=== PATIENT | male | born 1940 | race Caucasian/White ===

== ENCOUNTER → 2021-12-07 | Outpatient (CLI) | payer MEDICARE, OTHER ==
[~2021-12-07] MED LIST: ASP81TEC PO; ASPIRIN 81 MG PO; ATEN25TA PO; CPR500T PO; FISH OIL 1,2001 EAC1 PO; HYDR-3583 PO; HYDR1CAP2 PO; HYDR50TA3 PO; HYOS0.1216 PO; HYOS0.1217 PO; KCL10CCR PO; MTF500T PO; NITR-33 PO; OXYC1CAP3 PO; PHEN200T27 PO; PROP1TAB77 PO; SIMV40TA4 PO
== END ==
LOC: CARD 10:00
PROVIDERS: ATTEND Internal Medicine Cardiovascular Disease
DX: I35.0 Nonrheumatic aortic (valve) stenosis (principal); I10 Essential (primary) hypertension
CPT/HCPCS: 93306

== ENCOUNTER → 2021-12-09 | Outpatient (CLI) | payer MEDICARE, OTHER ==
[~2021-12-09] MED LIST changes: +CATHETER FLUSH 10 ML SYR IV PRN; +HOLD METFORMIN - RECEIVED CONTRAST 20 ML VIAL IV SCH; +IOHEXOL 350 MG/ML 100 ML (OMNIPAQUE 350) VIAL IV ONE; +NS 100 ML (IVPB) BAG IV ONE
[2021-12-09 09:17] LABS: CALCIUM 9.3 MG/DL (8.5-10.1); CREATININE SERUM 0.84 MG/DL (0.60-1.30); POTASSIUM 4.4 MMOL/L (3.6-5.0)
--- NOTE | 2021-12-09 11:21 | Diagnostic Imaging Report ---
PROCEDURE: CT angiography of the abdomen with and without contrast. TECHNIQUE: Multiple contiguous axial images were obtained through the abdomen and pelvis after administration of intravenous contrast. 3D MIP reconstructions were made. Auto Exposure Controls were utilized during the CT exam to meet ALARA standards for radiation dose reduction. INDICATION: Aneurysm COMPARISON with exam 04/27/2013, that exam a noncontrast abdominal pelvic CT. There is marked progression of severely aneurysmal partially visualized tortuous descending thoracic aorta measuring 6.7 cm. The root is ascending and the remaining descending aorta are all above the field of view. Owing to its marked progression and severe dilatation, a formal CT angiographic study of the thoracic aorta needed. Abdominal aorta just above the celiac takeoff is aneurysmally dilated at 3.6 cm today previously 3.2 cm. There is an accessory right upper pole renal artery. A tortuous abdominal aorta at its proximal infrarenal segment is 2.8 cm today, previously 2.5 cm. Unruptured ectasia of the bilateral proximal common iliacs measured 1.5 cm left and 1.4 cm right, unchanged. There is no abdominal intra or retroperitoneal hemorrhage. The celiac, the superior mesenteric and inferior mesenteric arteries as well as their visualized primary branches were all widely patent. A few renal cysts without hydronephrosis. The liver, spleen, adrenals, pancreas all unremarkable. No bowel obstruction. IMPRESSION: Progressive and severe aneurysmal dilatation of the partially visualized lower thoracic aorta. No visualized lower chest hemorrhage. Mild progressive ectasia of the atherosclerotic abdominal aorta without its rupture. Mild stable ectasia of the bilateral common iliacs. No findings of acute end organ ischemia. Formal CT angiographic study of the chest recommended to evaluate the aneurysmal thoracic aorta throughout its extent. Dictated by: Dictated on workstation # [id number]
== END ==
LOC: RAD 09:45
PROVIDERS: ATTEND Nurse Practitioner Family
DX: I71.4 Abdominal aortic aneurysm, without rupture (principal); I10 Essential (primary) hypertension
CPT/HCPCS: 36415; 74175; 80048

== ENCOUNTER → 2021-12-17 | Outpatient (CLI) | payer MEDICARE, OTHER ==
[~2021-12-17] MED LIST changes: -CATHETER FLUSH 10 ML SYR IV PRN; -HOLD METFORMIN - RECEIVED CONTRAST 20 ML VIAL IV SCH; -IOHEXOL 350 MG/ML 100 ML (OMNIPAQUE 350) VIAL IV ONE; -NS 100 ML (IVPB) BAG IV ONE
[2021-12-17 10:03] LABS: BASOPHILS % (AUTO) 0 % (0-10); EOSINOPHILS # (AUTO) 0.1 10^3/uL (0.0-0.3); EOSINOPHILS % (AUTO) 1 % (0-10); HEMATOCRIT 40 % (40-54); HEMOGLOBIN 13.2 g/dL (13.3-17.7); LYMPHOCYTES # (AUTO) 0.8 10^3/uL (1.0-4.0); LYMPHOCYTES % (AUTO) 13 % (12-44); MEAN CORPUSCULAR HEMOGLOBIN 31 pg (25-34); MEAN CORPUSCULAR HGB CONC 33 g/dL (32-36); MEAN CORPUSCULAR VOLUME 95 fL (80-99); MEAN PLATELET VOLUME 9.8 fL (9.0-12.2); MONOCYTES # (AUTO) 0.4 10^3/uL (0.0-1.0); MONOCYTES % (AUTO) 6 % (0-12); NEUTROPHILS # (AUTO) 5.3 10^3/uL (1.8-7.8); NEUTROPHILS % (AUTO) 80 % (42-75); PLATELET COUNT 175 10^3/uL (130-400); WHITE BLOOD COUNT 6.6 10^3/uL (4.3-11.0)
[2021-12-17 10:10] LABS: BILIRUBIN,URINE NEGATIVE (NEGATIVE); CLARITY,URINE CLEAR; COLOR,URINE YELLOW; GLUCOSE, URINE (UA) NEGATIVE (NEGATIVE); KETONES,URINE NEGATIVE (NEGATIVE); LEUKOCYTE ESTERASE ,URINE NEGATIVE (NEGATIVE); NITRITE,URINE NEGATIVE (NEGATIVE); PH,URINE 5.5 (5-9); PROTEIN,URINE NEGATIVE (NEGATIVE)
[2021-12-17 10:20] LABS: ALBUMIN 3.9 GM/DL (3.2-4.5); BACTERIA,URINE NEGATIVE /HPF; BILIRUBIN,TOTAL 1.1 MG/DL (0.1-1.0); CALCIUM 9.5 MG/DL (8.5-10.1); CREATININE SERUM 0.82 MG/DL (0.60-1.30); POTASSIUM 4.6 MMOL/L (3.6-5.0); SQUAMOUS EPITHELIAL CELL,UR RARE /HPF; TOTAL PROTEIN 6.4 GM/DL (6.4-8.2)
--- NOTE | 2021-12-17 11:03 | Diagnostic Imaging Report ---
Indication: Thoracic aortic aneurysm. Correlation is made with prior chest radiograph from 08/23/2010. There is marked ectasia and tortuosity of the descending thoracic aorta. Size of the aorta appears to be increased when compared with prior radiograph from 2011. This would be better characterized with CT chest if not already performed. Lungs are clear. There is no effusion or pneumothorax IMPRESSION: Thoracic aneurysmal dilatation and tortuosity, increased since exam from 2010. Better characterization with CT would be recommended if not already performed at another institution. Dictated by: Dictated on workstation # [id number]
== END ==
LOC: CARD 09:31
PROVIDERS: ATTEND Nurse Practitioner
DX: Z01.810 Encounter for preprocedural cardiovascular examination (principal); I71.2 Thoracic aortic aneurysm, without rupture
CPT/HCPCS: 36415; 71046; 80053; 81000; 85025; 93005

== ENCOUNTER → 2021-12-22 | Outpatient (CLI) | payer MEDICARE, OTHER | LOC: LABNPT 07:32 | PROVIDERS: ATTEND Thoracic Surgery (Cardiothoracic Vascular Surgery) | DX: Z01.812 Encounter for preprocedural laboratory examination (principal); I71.2 Thoracic aortic aneurysm, without rupture ==

== ENCOUNTER 2022-02-13 11:00 | Inpatient (IN) | payer MEDICARE, OTHER ==
[~2022-02-13] VITALS: Ht 172.7 cm; Wt 67.4 kg
[2022-02-13] VITALS (8 sets, daily range): BP systolic 21–122; BP diastolic 61–97
[2022-02-13] MEDS ORDERED: MELATONIN 3 MG TABLET PO PRN (12:30)
[2022-02-13] MEDS ORDERED: MILK OF MAGNESIA 400 MG/5 ML 30 ML UDC PO PRN (12:30)
[2022-02-13] MEDS ORDERED: ANTACID SUSP 30 ML UDC (MYLANTA) PO PRN (12:30)
[2022-02-13] MEDS ORDERED: ONDANSETRON 4 MG/2 ML (SDV) Z0FRAN IV PRN (12:30)
--- NOTE | 2022-02-13 12:59 | Tele-ICU Progress Note ---
Subjective Date Seen by a Provider: Feb 13, 2022 Time Seen by a Provider: 12:30 Subjective/Events-last exam This virtual visit was conducted using real time audio/video. Thank you for asking us to see this patient for respiratory insufficiency due to CHF. Transferred from OSH so no data available. PMH: TAA repair and lumbar laminectomy for blood clot January 2022. HTN. PE: VSS. O2 sat 95% on Bipap 15/5 30% HEENT: No obvious masses, adenopathy or JVD. Chest: clear to auscultation. CV: RRR S1 S2 No murmur or added sounds. Abd: Non-tender. Bowel sounds Y. : Unremarkable. Bonilla Y. MITER SAWYER/psychiatric: Grossly intact. No obvious focal findings. Extremities: trace edema. Capillary refill < 3 seconds. Skin: unremarkable. Results: all pending Available chart/vitals reviewed. Video assessment done using teleICU camera, rest of exam as per RN. A/P: Respiratory insufficiency: Continue present management with BIPAP Monitor for increasing oxygenation needs and/or need for intubation. Critical Care: critically ill patient. Cont. Lasix, SSI. Discussed with RN AMBIKA. Asked RN to reach out to eICU if any questions or concerns later. Time spent with patient/coordination of care with other health professionals (m ins): 30 Sepsis Event Evaluation Height, Weight, BMI Height: '" Weight: 176lbs. oz. 79.980533ya; BMI Method: Exam Exam Patient acknowledged, consented, and participated in this virtual visit which was conducted using real time audio/video Height & Weight Height: '" Weight: 176lbs. oz. 79.261737ta; BMI Method: General Appearance: Mild Distress Peripheral Pulses: 1+ Dorsalis Pedis (R), 1+ Left Dors-Pedis (L) Assessment/Plan Assessment/Plan see free text Critical Care: Critically Ill Patient JOHANNA GIANG MD Feb 13, 2022 12:59
[2022-02-13] MEDS: inSUlin ASPART (NovoLOG) 1 UNIT/0.01 ML (CHARGE PER UNIT) SC SCH ×2 (16:28→21:33)
[2022-02-13] MEDS: FUROSEMIDE 40 MG/4 ML INJ (LASIX) IVP SCH (16:29)
[2022-02-13] MEDS ORDERED: HEParin DRIP 25000 UNIT/500ML 500 ML IV ONE (19:41)
[2022-02-13] MEDS ORDERED: HEParin DRIP 25000 UNIT/500ML 500 ML IV SCH (19:45)
[2022-02-13] MEDS ORDERED: HEParin 1000 UNIT/ML (10ML VIAL) FOR BOLUS IV PRN (19:45)
[2022-02-13] MEDS ORDERED: ASPIRIN E.C. 81 MG (ECOTRIN) TAB PO ONE (20:45)
[2022-02-13] MEDS ORDERED: NON-FORMULARY MEDICATION 1 EA EA (Simvastatin 40 MG) PO SCH (21:00)
[2022-02-13 21:19] LABS: HEMATOCRIT 33 % (40-54); HEMOGLOBIN 10.5 g/dL (13.3-17.7); MEAN CORPUSCULAR HEMOGLOBIN 30 pg (25-34); MEAN CORPUSCULAR HGB CONC 32 g/dL (32-36); MEAN CORPUSCULAR VOLUME 97 fL (80-99); MEAN PLATELET VOLUME 10.4 fL (9.0-12.2); PLATELET COUNT 256 10^3/uL (130-400); WHITE BLOOD COUNT 11.4 10^3/uL (4.3-11.0)
[2022-02-13 21:33] LABS: INR 1.1 (0.8-1.4); PROTHROMBIN TIME PATIENT 14.1 SEC (12.2-14.7)
[2022-02-14] VITALS (17 sets, daily range): BP systolic 109–135; BP diastolic 67–91
[2022-02-14 04:33] LABS: BASOPHILS % (AUTO) 0 % (0-10); EOSINOPHILS % (AUTO) 0 % (0-10); HEMATOCRIT 32 % (40-54); HEMOGLOBIN 10.4 g/dL (13.3-17.7); LYMPHOCYTES % (AUTO) 9 % (12-44); MEAN CORPUSCULAR HEMOGLOBIN 31 pg (25-34); MEAN CORPUSCULAR HGB CONC 32 g/dL (32-36); MEAN CORPUSCULAR VOLUME 95 fL (80-99); MEAN PLATELET VOLUME 10.1 fL (9.0-12.2); MONOCYTES # (AUTO) 0.9 10^3/uL (0.0-1.0); MONOCYTES % (AUTO) 8 % (0-12); NEUTROPHILS # (AUTO) 9.2 10^3/uL (1.8-7.8); NEUTROPHILS % (AUTO) 82 % (42-75); PLATELET COUNT 251 10^3/uL (130-400); WHITE BLOOD COUNT 11.2 10^3/uL (4.3-11.0)
[2022-02-14 04:51] LABS: POTASSIUM 3.5 MMOL/L (3.6-5.0)
[2022-02-14 04:57] LABS: CREATININE SERUM 0.82 MG/DL (0.60-1.30)
[2022-02-14] MEDS: inSUlin ASPART (NovoLOG) 1 UNIT/0.01 ML (CHARGE PER UNIT) SC SCH ×2 (05:06→11:53)
[2022-02-14] MEDS: FUROSEMIDE 40 MG/4 ML INJ (LASIX) IVP SCH (06:32)
--- NOTE | 2022-02-14 07:24 | Diagnostic Imaging Report ---
EXAM: CHEST 1 VIEW, AP/PA ONLY. INDICATION: Congestive heart failure. COMPARISON: 12/17/2021. FINDINGS: Borderline heart size. Tortuous aorta with interval placement of a descending aortic stent graft. This obscures the central pulmonary vascularity. No significant interstitial prominence. No pleural effusion or pneumothorax. No acute osseous findings. IMPRESSION: 1. Interval placement of a thoracic aortic stent graft. 2. Chest is otherwise stable without significant interstitial or airspace edema. Dictated by: Dictated on workstation # [id number]
[2022-02-14] MEDS ORDERED: CATHETER FLUSH 10 ML SYR IV PRN (08:45)
[2022-02-14] MEDS ORDERED: NS IV 1000 ML 1,000 ML IV ONE (08:45)
--- NOTE | 2022-02-14 08:58 | Consultation-Cardiology ---
HPI-Cardiology Cardiology Consultation: Date of Consultation 02/14/22 Date of Admission 02/13/22 Attending Physician Daniela Peterson MD Admitting Physician Admitting Physician: Neyda Summers MD Attending Physician: Neyda Summers MD Consulting Physician JUDE COE JR, MD HPI: Time Seen by a Provider: 08:52 Chief Complaint: REASON FOR CONSULTATION: Heart failure and possible NSTEMI. I had the pleasure of seeing Ray in the intensive care unit at [facility] in [place], [place] today. In November he saw one of my partners in the office for a murmur. He subsequently underwent an echocardiogram that showed mild to moderate aortic regurgitation but also questionable aortic aneurysm. He subsequently underwent an abdominal CT scan that showed a small abdominal aortic aneurysm but a larger thoracic aortic aneurysm that was only partially imaged since the CT scan was abdominal. He was then referred to Dr. Wesley at [facility] and around January 31 he underwent TEVAR (thoracic endovascular aortic repair). On the second postoperative day the spinal drain was removed and then he developed severe back pain and was found to have spinal hematoma and had to undergo laminectomy. He spent approximately 9 days in the hospital and was just discharged home last week. He was doing well until early yesterday morning when he woke up from sleep feeling short of breath. He sat up in bed and still felt short of breath. His [id number]-mh-bmt checked his oxygen saturation and found this to be low so he went to [facility] for evaluation. He was found to be in heart failure and transferred to our hospital for further evaluation. He has received intravenous furosemide and his shortness of breath has already improved. During his evaluation, he had troponin levels drawn which were elevated and a cardiology consultation was re quested. He denies any chest discomfort. He denies any known history of coronary artery disease. 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 He denies palpitations, lightheadedness, syncope, or ankle edema. Since his surgery, he has had some intermittent problems swallowing liquids. He will get a lump in his throat. He has not had any trouble swallowing solid food. Certain portions of this document may have been dictated utilizing voice recognition technology. Inherent to this technology, typographical and gr ammatical errors may exist. As much as I am diligent to identify and correct these mistakes, some errors may remain in the document. Review of Systems-Cardiology Review of Systems Other comments Review of 10 organ systems is as per the history of present illness, otherwise negative. [id number] Hx Patient Social History Marrital Status: Smoking Status: Never a Smoker Have you traveled recently?: No Alcohol Use?: No Pt feels they are or have been: No Past Medical History PMH As described under Assessment. Family Medical History Family Medical History: He did not report a family history of premature coronary artery disease. Allergies and Home Medications Allergies Coded Allergies: Penicillins (Verified Allergy, Unknown, 05/11/10) Patient Home Medication List Home Medication List Reviewed: Yes Aspirin (Aspirin Ec 81 Mg) 81 Mg Tabec, 81 MG PO DAILY, (Reported) Entered as Reported by: MELISSA HUBER on 05/31/10 08 Last Action: Continued Atenolol (Tenormin 25 Mg) 25 Mg Tablet, 1 EACH PO DAILY, (Reported) Entered as Reported by: RENÉE PEDROZA on 05/11/1018 Last Action: Continued Hydrochlorothiazide (Hydrochlorothiazide) 50 Mg Tablet, 1 EACH PO DAILY, (Reported) Entered as Reported by: RENÉE PEDROZA on 05/11/10 0815 Hyoscyamine Sulfate (Levsin 0.125 Mg Tab) 0.125 Mg Tab, 1-2 EACH PO Q4HR PRN, (Reported) Entered as Reported by: LAMONT GARCIA on 05/08/13 1345 Metformin Hcl (Metformin 500 Mg) 500 Mg Tablet, 1 EACH PO HS, (Reported) Entered as Reported by: MANAV BIRD on 05/07/13 1336 Tibbie-3 Fatty Acids/Fish Oil (Fish Oil 1,200 Mg Softgel) 1 Each Capsule, 1 EACH PO DAILY, (Reported) Entered as Reported by: MELISSA HUBER on 08/23/10 0913 Oxycodone Hcl/Acetaminophen (Oxycodone-Apap 5-500 Mg Cap) 1 Each Capsule, 1 EACH PO Q4H PRN, (Reported) Entered as Reported by: LAMONT GARCIA on 05/08/13 0947 Phenazopyridine Hcl (Pyridium) 200 Mg Tablet, 1 EACH PO TID PRN, (Reported) Entered as Reported by: LAMONT GARCIA on 05/08/13 1345 Potassium Chloride (Klor-Con 10) 10 Meq Tablet.sa, 10 MEQ PO DAILY, (Reported) Entered as Reported by: RENÉE PEDROZA on 05/11/10 0816 Simvastatin (Simvastatin) 40 Mg Tablet, 40 MG PO HS, (Reported) Entered as Reported by: MANAVABDIEL BIRD on 05/07/13 1336 Last Action: Converted Exam Vital Signs Vital Signs Date Time Temp Pulse Resp B/P (MAP) Pulse Ox O2 Delivery O2 Flow Rate FiO2 02/14/22 08:00 90 14 119/67 (84) 96 Room Air 02/14/22 07:00 3.00 02/13/22 20:00 37.0 02/13/22 18:59 21 Physical Exam General: Alert. No acute distress. Well nourished and appears stated age. Eye: Extraocular movements are intact. Conjunctivae are clear. There are no xanthelasma. HENT: Normocephalic. Atraumatic. Carotid pulsations 2/2 without bruits. Neck: Jugular venous pressure does not appear elevated. No thyromegaly appreciated. Respiratory: Lungs are clear to auscultation. Respirations are non-labored. Breath sounds are equal. Symmetrical chest wall expansion. Cardiovascular: Normal rate. Regular rhythm. No murmur. No gallop. Point of maximal impulse is not appear displaced. Good pulses equal in all extremities. No edema. Gastrointestinal: Soft. Normal bowel sounds. Skin: Skin turgor is normal. There is no pallor. Musculoskeletal: No kyphosis or scoliosis appreciated. Neurologic: Alert and oriented to person, place, time. Cranial nerves 3-12 appear grossly intact. The patient has good motor tone strength in the upper and lower extremities bilaterally. Psychiatric: Cooperative. Appropriate mood & affect. Labs Laboratory Tests Test 02/13/22 16:27 02/13/22 16:28 02/13/22 21:05 02/13/22 21:30 Range/Units Troponin I 4.611 *H 5.587 *H <0.028 NG/ML Glucometer 147 H 155 H 70-110 MG/DL White Blood Count 11.4 H 4.3-11.0 10^3/uL Red Blood Count 3.45 L 4.30-5.52 10^6/uL Hemoglobin 10.5 L 13.3-17.7 g/dL Hematocrit 33 L 40-54 % Mean Corpuscular Volume 97 80-99 fL Mean Corpuscular Hemoglobin 30 25-34 pg Mean Corpuscular Hemoglobin Concent 32 32-36 g/dL Red Cell Distribution Width 13.5 10.0-14.5 % Platelet Count 256 130-400 10^3/uL Mean Platelet Volume 10.4 9.0-12.2 fL Prothrombin Time 14.1 12.2-14.7 SEC INR Comment 1.1 0.8-1.4 Activated Partial Thromboplast Time 39 H 24-35 SEC Test 02/13/22 23:37 02/14/22 02:35 02/14/22 04:20 02/14/22 05:05 Range/Units Activated Partial Thromboplast Time 52 H 58 H 50 H 24-35 SEC White Blood Count 11.2 H 4.3-11.0 10^3/uL Red Blood Count 3.39 L 4.30-5.52 10^6/uL Hemoglobin 10.4 L 13.3-17.7 g/dL Hematocrit 32 L 40-54 % Mean Corpuscular Volume 95 80-99 fL Mean Corpuscular Hemoglobin 31 25-34 pg Mean Corpuscular Hemoglobin Concent 32 32-36 g/dL Red Cell Distribution Width 13.6 10.0-14.5 % Platelet Count 251 130-400 10^3/uL Mean Platelet Volume 10.1 9.0-12.2 fL Immature Granulocyte % (Auto) 1 % Neutrophils (%) (Auto) 82 H 42-75 % Lymphocytes (%) (Auto) 9 L 12-44 % Monocytes (%) (Auto) 8 0-12 % Eosinophils (%) (Auto) 0 0-10 % Basophils (%) (Auto) 0 0-10 % Neutrophils # (Auto) 9.2 H 1.8-7.8 10^3/uL Lymphocytes # (Auto) 1.0 1.0-4.0 10^3/uL Monocytes # (Auto) 0.9 0.0-1.0 10^3/uL Eosinophils # (Auto) 0.0 0.0-0.3 10^3/uL Basophils # (Auto) 0.0 0.0-0.1 10^3/uL Immature Granulocyte # (Auto) 0.1 0.0-0.1 10^3/uL Sodium Level 141 135-145 MMOL/L Potassium Level 3.5 L 3.6-5.0 MMOL/L Chloride Level 101 98-107 MMOL/L Carbon Dioxide Level 23 21-32 MMOL/L Anion Gap 17 H 5-14 MMOL/L Blood Urea Nitrogen 25 H 7-18 MG/DL Creatinine 0.82 0.60-1.30 MG/DL Estimat Glomerular Filtration Rate 89 BUN/Creatinine Ratio 30 Glucose Level 138 H 70-105 MG/DL Calcium Level 9.0 8.5-10.1 MG/DL Troponin I 4.454 *H <0.028 NG/ML Triglycerides Level 93 <150 MG/DL Cholesterol Level 137 < 200 MG/DL LDL Cholesterol Direct 82 1-129 MG/DL VLDL Cholesterol 19 5-40 MG/DL HDL Cholesterol 32 L 40-60 MG/DL ECG Impression ECG Comment Electrocardiogram from this morning and last evening both show sinus rhythm with left anterior hemiblock and lateral ST depression concerning for possible is chemia. Diagnosis/Problems Diagnosis/Problems (1) Acute heart failure with preserved ejection fraction (HFpEF) Assessment & Plan: He just had an echocardiogram in November 2021 that showed a normal ejection fraction. He has symptoms and findings consistent with acute heart failure with preserved ejection fraction. He has been given intravenous furosemide and his symptoms have nearly completely resolved due to the heart failure. I have resumed his beta-flash. (2) Non-ST elevation myocardial infarction (NSTEMI), initial care episode Assessment & Plan: He appears to have suffered a non-ST elevation myocardial infarction. His troponin levels have been trending downward but he has persistent ischemic changes in the lateral leads on his electrocardiograms. I recommend further evaluation with a cardiac catheterization and possible percutaneous coronary intervention. I have explained the benefits and risks of the procedure to the patient and his and both are in agreement to proceed. I did start him on intravenous heparin when he was admitted. He is also received aspirin and beta-flash has been ordered. I intensified his statin dosing. (3) Thoracic aortic aneurysm without rupture Assessment & Plan: He had a recent TEVAR as outlined above. Unclear whether or not volume he may have received around the time of the procedure could have precipitated this episode of heart failure. (4) Aortic regurgitation Assessment & Plan: His echocardiogram from November 2021 showed mild to moderate aortic regurgitation. This should not be contributing to the current issues but I will obtain an echocardiogram in the morning just to be sure the aortic regurgitation has not gotten any worse since his TEVAR. (5) Abdominal aortic aneurysm Assessment & Plan: He also has a small abdominal aortic aneurysm but this has not required intervention. (6) Mixed hyperlipidemia Assessment & Plan: I have intensified his statin dosing due to the possible non-ST elevation myocardial infarction. (7) Primary hypertension Assessment & Plan: I have ordered atenolol which she was taking at home. It appears he may have also been taking losartan. I will hold off on starting this until we see how he does with the cardiac catheterization. (8) Type 2 diabetes mellitus without complication Assessment & Plan: This is being managed by the hospitalist. His metformin will need to be held for 48 hours following the cardiac catheterization. JUDE COE JR, MD Feb 14, 2022 08:58
[2022-02-14] MEDS ORDERED: ASPIRIN E.C. 81 MG (ECOTRIN) TAB PO SCH (09:00)
[2022-02-14] MEDS ORDERED: ATENOLOL 25 MG (TENORMIN) TAB PO SCH (09:00)
--- NOTE | 2022-02-14 09:07 | Pre-Op Note & Conscious Sedat ---
Pre-Operative Progress Note H&P Reviewed The H&P was reviewed, patient examined and no changes noted. Date H&P Reviewed: Feb 14, 2022 Time H&P Reviewed: 09:06 Pre-Op Diagnosis: NSTEMI and acute heart failure with preserved ejection fraction Given his current clinical status, he is considered moderately frail. He has acute heart failure with preserved ejection fraction, class IV. This is his first diagnosis of heart failure and the heart failure was present before the cardiac catheterization. Conscious Sedation Pre-Proced ASA Score 2 For ASA 3 and 4: Consider anesthesia and medical clearance. Also, for patients with a history of failed moderate sedation consider anesthesia. Airway Lungs Heart ASA score ASA 1: a normal healthy patient ASA 2: a patient with a mild systemic disease (mid diabetes, controlled hypertension, obesity ASA 3: a patient with a severe systemic disease that limits activity (angina, COPD, prior Myocardial infarction) ASA 4: a patient with an incapacitating disease that is a constant threat to life (CHF, renal failure) ASA 5: a moribund patient not expected to survive 24 hrs. (ruptured aneurysm) ASA 6: a declared brain- patient whose organs are being harvested. For emergent operations, add the letter E after the classification Mallampati Classification Grade 2 Sedation Plan Analgesia, Amnesia, Plan communicated to team members, Discussed options with patient/fam, Discussed risks with patient/fam The patient is an appropriate candidate to undergo the planned procedure, sedation, and anesthesia. The patient immediately re-assessed prior to indication. JUDE COE JR, MD Feb 14, 2022 09:07
[2022-02-14] MEDS ORDERED: VERAPAMIL 5 MG/2 ML (CALAN) VIAL IV ONE (11:42)
[2022-02-14] MEDS ORDERED: HEParin (CATH LAB) 1,000 ML IV ONE (11:43)
[2022-02-14] MEDS ORDERED: NS IV 1000 ML 0 ML ONE (11:43)
[2022-02-14] MEDS ORDERED: fentaNYL INJ 100 MCG/2 ML AMP ONE (11:43)
[2022-02-14] MEDS ORDERED: MIDAZOLAM 5 MG/5 ML (VERSED) VIAL ONE (11:43)
[2022-02-14] MEDS ORDERED: NITRO DRIP 25000 MCG/D5W 250 ML IV ONE (11:43)
[2022-02-14] MEDS ORDERED: HEParin 1000 UNIT/ML (10ML VIAL) FOR BOLUS ONE (11:43)
[2022-02-14] MEDS ORDERED: LIDOCAINE 1% INJ 20 ML VIAL ONE (11:46)
[2022-02-14] MEDS ORDERED: NS IV 1000 ML 1,000 ML IV SCH (13:15)
--- NOTE | 2022-02-14 13:45 | Cardiac Cath Report ---
CARDIAC CATHETERIZATION DATE OF PROCEDURE: 02/14/2022 INDICATION: Non-ST elevation myocardial infarction and acute heart failure with preserved ejection fraction. HISTORY: The patient is a 81 year old male with no previously known history of coronary artery disease. He was recently found to have a thoracic aortic aneurysm and around January 31, 2022 he underwent a TEVAR at [facility]. His postoperative course was complicated with what sounds like was an epidural hematoma that required operative repair. He was ultimately discharged approximately 9 days following the procedure. He was well until yesterday morning when he developed acute onset of shortness of breath. He presented to an outside hospital and was felt to be in acute heart failure and also had an elevated troponin level consistent with a non-ST elevation myocardial infarction he was then transferred to our facility. Overnight his troponin levels went up slightly but then began to decrease. At no time was he having chest discomfort. However, in light of the non-ST elevation myocardial infarction complicated by acute heart failure, he is now referred for further evaluation with a cardiac catheterization. PROCEDURES PERFORMED: 1. Left heart catheterization with hemodynamic measurements. 2. Diagnostic [place] coronary angiography. PROCEDURE DESCRIPTION: After informed consent and in the fasting state, left heart catheterization was performed through the right femoral artery utilizing a 6 Guamanian system by percutaneous approach. Standard 5 Guamanian Vivek catheters were utilized for the diagnostic portion of the procedure. I initially gained access to the right radial artery utilizing a 6 Guamanian sheath by percutaneous approach. However, due to tortuosity in the brachiocephalic trunk, I was not able to negotiate a 5 Guamanian JR4 catheter into the aortic root. The right radial approach was then aborted. I then gained access to the right femoral artery utilizing a micropuncture kit by percutaneous approach. The mi cropuncture sheath was then exchanged for a 6 Guamanian sheath. Due to extreme tortuosity in the descending aorta, the 6 Guamanian sheath was then exchanged for a long 45 cm sheath that was placed over an Amplatz wire under fluoroscopic guidance into the distal segment of the previously placed TEVAR. All catheters were exchanged over a guidewire. Following the procedure, a vascular band was applied to the radial artery access site and the sheath was removed with good hemostasis. Following the procedure, right femoral angiogram was performed which revealed the sheath to be entering above the bifurcation and the femoral artery was free of significant disease. A Mynx closure device was deployed. RESULTS: HEMODYNAMICS: The aortic pressure was 112/63 mmHg. The left ventricular pressure was 114/0 mmHg with a left ventricular end-diastolic pressure of 10 mmHg. There was no significant pressure gradient upon pullback across aortic valve. CORONARY ANGIOGRAPHY: The coronary arteries were diffusely calcified, more e xtensively in the left coronary artery. Left main coronary artery: Short but free of significant disease. Left anterior descending coronary artery: There was a 99% stenosis proximally and another 99% stenosis in the distal segment just distal to the takeoff of a large diagonal branch with KATHY-1 flow. There was an aneurysm just distal to this stenosis. There was a 90% stenosis in the proximal segment of the first major diagonal branch with KATHY-3 flow. Left circumflex coronary artery: Codominant and there was a 90% stenosis proximally with KATHY-1 flow to the distal branches. There were 2 small obtuse marginal branches which were diffusely diseased and then a much larger posterolateral branch which was free of significant disease. Right coronary artery: Codominant but somewhat small in caliber with diffuse disease up to 90% stenotic in the mid segment with KATHY-1 flow to the distal branch. There were right to light collaterals seen filling the distal left anterior descending coronary artery. IMPRESSION: 1. Normal left heart pressures. 2. 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 The left main coronary artery is spared but the proximal left anterior descending coronary artery is involved. 3. The patient is known to have normal left ventricular systolic function with an estimated ejection fraction of 55-60% by echocardiogram performed on 12/07/2021. 4. The patient is also known to have mild to moderate aortic regurgitation by the same echocardiogram noted above. Certain portions of this document may have been dictated utilizing voice recognition technology. Inherent to this technology, typographical and grammatical errors may exist. As much as I am diligent to identify and correct these mistakes, some errors may remain in the document. JUDE COE JR, MD Feb 14, 2022 13:45
--- NOTE | 2022-02-14 15:22 | Discharge Summary ---
Discharge Summary Hospital Course Problems/Dx: (1) Multiple vessel coronary artery disease Status: Acute (2) Non-ST elevation myocardial infarction (NSTEMI), initial care episode Status: Acute (3) Acute heart failure with preserved ejection fraction (HFpEF) Status: Acute (4) Thoracic aortic aneurysm without rupture Status: Chronic (5) Aortic regurgitation Status: Chronic (6) Abdominal aortic aneurysm Status: Chronic (7) Mixed hyperlipidemia Status: Chronic (8) Primary hypertension Status: Chronic (9) Type 2 diabetes mellitus without complication Status: Chronic Hospital Course Date of Admission: Feb 13, 2022 at 12:41 Admission Diagnosis : NSTEMI Family Physician/Provider: Daniela Guadarrama MD Date of Discharge: 02/14/22 Discharge Diagnosis: Multi-vessel CAD Hospital Course: Silver Durham is an 81 year old male who was recently discharged home after a TAA repair and laminectomy performed in [place] and then developed shortness of breath at home. He presented to [facility] and was transferred to [facility]. His troponin increased significantly and Cardiology performed left heart catheterization. He was found to have multi-vessel coronary artery disease. He was transferred to [place] for bypass surgery evaluation. Labs and Pending Lab Test: Laboratory Tests 02/13/22 16:27: Troponin I 4.611*H 02/13/22 16:28: Glucometer 147H 02/13/22 21:05: Troponin I 5.587*H, White Blood Count 11.4H, Red Blood Count 3.45L, Hemoglobin 10.5L, Hematocrit 33L, Mean Corpuscular Volume 97, Mean Corpuscular Hemoglobin 30, Mean Corpuscular Hemoglobin Concent 32, Red Cell Distribution Width 13.5, Platelet Count 256, Mean Platelet Volume 10.4, Prothrombin Time 14.1, INR Comment 1.1, Activated Partial Thromboplast Time 39H 02/13/22 21:30: Glucometer 155H 02/13/22 23:37: Activated Partial Thromboplast Time 52H 02/14/22 02:35: Activated Partial Thromboplast Time 58H 02/14/22 04:20: White Blood Count 11.2H, Red Blood Count 3.39L, Hemoglobin 10.4L, Hematocrit 32L , Mean Corpuscular Volume 95, Mean Corpuscular Hemoglobin 31, Mean Corpuscular Hemoglobin Concent 32, Red Cell Distribution Width 13.6, Platelet Count 251, Mean Platelet Volume 10.1, Immature Granulocyte % (Auto) 1, Neutrophils (%) (Auto) 82H, Lymphocytes (%) (Auto) 9L, Monocytes (%) (Auto) 8, Eosinophils (%) (Auto) 0, Basophils (%) (Auto) 0, Neutrophils # (Auto) 9.2H, Lymphocytes # (Auto) 1.0, Monocytes # (Auto) 0.9, Eosinophils # (Auto) 0.0, Basophils # (Auto) 0.0, Immature Granulocyte # (Auto) 0.1, Sodium Level 141, Potassium Level 3.5L, Chloride Level 101, Carbon Dioxide Level 23, Anion Gap 17H, Blood Urea Nitrogen 25H, Creatinine 0.82, Estimat Glomerular Filtration Rate 89, BUN/Creatinine Ratio 30, Glucose Level 138H, Mean Blood Glucose [Pending], Hemoglobin A1c [Pending], Calcium Level 9.0, Troponin I 4.454*H, Triglycerides Level 93, Cholesterol Level 137, LDL Cholesterol Direct 82, VLDL Cholesterol 19, HDL Cholesterol 32L 02/14/22 05:05: Activated Partial Thromboplast Time 50H 02/14/22 09:12: Activated Partial Thromboplast Time 56H Home Meds Active Reported Levsin 0.125 Mg Tab (Hyoscyamine Sulfate) 0.125 Mg Tab 1-2 Each PO Q4HR PRN Pyridium (Phenazopyridine HCl) 200 Mg Tablet 1 Each PO TID PRN Oxycodone-Apap 5-500 Mg Cap (Oxycodone Hcl/Acetaminophen) 1 Each Capsule 1 Each PO Q4H PRN Metformin 500 Mg (Metformin HCl) 500 Mg Tablet 1 Each PO HS Simvastatin 40 Mg Tablet 40 Mg PO HS Fish Oil 1,200 Mg Softgel (Kunkle-3 Fatty Acids/Fish Oil) 1 Each Capsule 1 Each PO DAILY Aspirin Ec 81 Mg (Aspirin) 81 Mg Tabec 81 Mg PO DAILY IF NO BLOOD IN URINE IN 48 HOURS THEN MAY RESUME MEDICATION. Tenormin 25 Mg (Atenolol) 25 Mg Tablet 1 Each PO DAILY Klor-Con 10 (Potassium Chloride) 10 Meq Tablet.sa 10 Meq PO DAILY Hydrochlorothiazide 50 Mg Tablet 1 Each PO DAILY Assessment/Pt Instructions Patient transferred Discharge Planning: >30 minutes discharge planning Discharge Instructions Discharge Diet: Low Sodium Diet Activity as Tolerated: Yes Consultations Cardiology Discharge Physical Examination Vital Signs Vital Signs Date Time Temp Pulse Resp B/P (MAP) Pulse Ox O2 Delivery O2 Flow Rate FiO2 02/14/22 15:00 98 12 131/83 (99) 100 Room Air 02/14/22 11:51 36.5 02/14/22 07:00 3.00 02/13/22 18:59 21 General Appearance: No Apparent Distress, WD/WN Respiratory: Lungs Clear, Normal Breath Sounds, No Respiratory Distress Cardiovascular: Regular Rate, Rhythm, No Edema, No Murmur Gastrointestinal: Normal Bowel Sounds, Non Tender, Soft Extremity: Normal Inspection, No Pedal Edema Skin: Normal Color, Warm/Dry Neurologic/Psychiatric: Alert, Normal Mood/Affect Allergies: Coded Allergies: Penicillins (Verified Allergy, Unknown, 05/11/10) Copy Copies To 1: DANIELA GUADARRAMA MD Discharge Summary Date of Admission Feb 13, 2022 at 12:41 Date of Discharge Discharge Date: Feb 14, 2022 Discharge Time: 18:00 Admission Diagnosis NSTEMI Consults/Procedures Consulations Cardiology Procedures Left heart catheterization Discharge Diagnosis (1) Multiple vessel coronary artery disease Status: Acute (2) Non-ST elevation myocardial infarction (NSTEMI), initial care episode Status: Acute (3) Acute heart failure with preserved ejection fraction (HFpEF) Status: Acute (4) Thoracic aortic aneurysm without rupture Status: Chronic (5) Aortic regurgitation Status: Chronic (6) Abdominal aortic aneurysm Status: Chronic (7) Mixed hyperlipidemia Status: Chronic (8) Primary hypertension Status: Chronic (9) Type 2 diabetes mellitus without complication Status: Chronic SAV NOWAK MD Feb 14, 2022 15:22
== END 2022-02-14 15:30 | disposition short-term general hospital (02) | DRG 280 ==
LOC: ICU 12:41
PROVIDERS: ADMIT Family Medicine; ATTEND Internal Medicine
PROC: 4A023N7 Measurement of Cardiac Sampling and Pressure, Left Heart, Percutaneous Approach (ICD-10-PCS; principal; 2022-02-14)
PROC: B2111ZZ Fluoroscopy of Multiple Coronary Arteries using Low Osmolar Contrast (ICD-10-PCS; 2022-02-14)
DX: I21.4 Non-ST elevation (NSTEMI) myocardial infarction (principal); I50.31 Acute diastolic (congestive) heart failure; I25.10 Atherosclerotic heart disease of native coronary artery without angina pectoris; I71.2 Thoracic aortic aneurysm, without rupture; I35.1 Nonrheumatic aortic (valve) insufficiency; E78.2 Mixed hyperlipidemia; I71.4 Abdominal aortic aneurysm, without rupture; I11.0 Hypertensive heart disease with heart failure; E11.9 Type 2 diabetes mellitus without complications; Z79.82 Long term (current) use of aspirin; Z79.899 Other long term (current) drug therapy
CPT/HCPCS: 36415; 71045; 80048; 80061; 82947; 83036; 84484; 85025; 85027; 85610; 85730; 93005; 93458; 94660; 94760